=== PATIENT | male | born 1960 | race Caucasian/White ===

== ENCOUNTER 2023-03-09 11:15 | Emergency (ER) | payer OTHER ==
[~2023-03-09] VITALS: Ht 167.6 cm; Wt 75.7 kg
[2023-03-09 11:43] VITALS: BP 174/96
[2023-03-09] MEDS ORDERED: KETOROLAC 30 MG/ML VIAL IM ONE (12:40)
[2023-03-09] MEDS ORDERED: NAPR-54 PO (13:42)
[2023-03-09] MEDS ORDERED: LID5T TP (13:42)
[2023-03-09] MEDS ORDERED: DICL20GE TP (13:42)
[2023-03-09] MEDS ORDERED: KETOROLAC 30 MG/ML VIAL ONE (14:26)
[2023-03-09 14:34] VITALS: BP 174/96
--- NOTE | 2023-03-09 14:34 | NUR ---
Patient discharged with v/s stable. Written and verbal after care instructions given and explained. Patient alert, oriented and verbalized understanding of instructions. Ambulatory with steady gait. All questions addressed prior to discharge. ID band removed. Patient advised to follow up with PMD. Rx of NAPROXEN, LIDOCAINE, VOLTAREN (SENT) given. Patient educated on indication of medication including possible reaction and side effects. Opportunity to ask questions provided and answered.
== END 2023-03-09 14:34 | disposition home or self-care (01) ==
LOC: MED 11:15
DX: S46.811A Strain of other muscles, fascia and tendons at shoulder and upper arm level, right arm, initial encounter (principal); M13.821 Other specified arthritis, right elbow; X58.XXXA Exposure to other specified factors, initial encounter; Y93.89 Activity, other specified; Y92.89 Other specified places as the place of occurrence of the external cause; Y99.8 Other external cause status
CPT/HCPCS: 73080; 96372; 99283; J1885